=== PATIENT | female | born 1995 | race Caucasian/White ===

== ENCOUNTER → 2016-12-22 00:34 | Emergency (ER) | payer OTHER ==
[~2016-12-22 00:34] MED LIST: Amoxicillin CAP* 500 MG PO ONE; predniSONE TAB* 20 MG PO ONE
[2016-12-22 01:47] VITALS: BP 116/67
--- NOTE | 2016-12-22 02:44 | ED ---
Martinez Krause Rebecca, scribed for Ramon Mccurdy on 12/22/16 at 0140 . Throat Pain/Nasal Congestion - HPI Summary HPI Summary: Pt is a 21 y/o F who presents to ED c/o throat pain. Pain began gradually on Saturday (6 days ago) and has been constant and worsening since onset. Pain is currently severe, ranked 8/10. Sx aggravated by swallowing and alleviated by nothing. Denies ear pain. Pt evaluated by Daren 2 times in the past week, but will not have any test results until this afternoon. - History of Current Complaint Chief Complaint: EDThroatPain Time Seen by Provider: 12/22/16 01:37 Hx Obtained From: Patient Onset/Duration: Gradual Onset, Still Present Severity: Severe - 8/10 Associated Signs And Symptoms: Positive: Negative - Allergies/Home Medications Allergies/Adverse Reactions: Allergies Allergy/AdvReac Type Severity Reaction Status Date / Time No Known Allergies Allergy Verified 12/22/16 01:43 PMH/Surg Hx/FS Hx/Imm Hx Previously Healthy: Yes Endocrine/Hematology History: Denies: Hx Diabetes Cardiovascular History: Denies: Hx Hypertension Infectious Disease History: Denies: Traveled Outside the [place] in Last 30 Days - Family History Known Family History: Negative: Hypertension, Diabetes - Social History Occupation: Student Substance Use Type: Reports: None Smoking Status (MU): Never Smoked Tobacco Review of Systems Constitutional: Negative Eyes: Negative Positive: Sore Throat. Negative: Ear Ache Cardiovascular: Negative Respiratory: Negative Gastrointestinal: Negative Genitourinary: Negative Musculoskeletal: Negative Skin: Negative Neurological: Negative Psychological: Normal All Other Systems Reviewed And Are Negative: Yes Physical Exam Triage Information Reviewed: Yes Vital Signs On Initial Exam: Initial Vitals Temp Pulse Resp BP Pulse Ox 98.2 F 80 16 119/90 99 12/22/16 00:45 12/22/16 00:45 12/22/16 00:45 12/22/16 00:45 12/22/16 00:45 Vital Signs Reviewed: Yes Appearance: Positive: Well-Appearing, No Pain Distress Skin: Positive: Warm, Skin Color Reflects Adequate Perfusion, Dry Eyes: Positive: EOMI, SILVERIO ENT: Positive: Pharyngeal erythema, Tonsillar swelling, Other - pharyngeal congestion Respiratory/Lung Sounds: Positive: Clear to Auscultation, Breath Sounds Present Cardiovascular: Positive: RRR, Pulses are Symmetrical in both Upper and Lower Extremities Abdomen Description: Positive: Nontender, Soft Bowel Sounds: Positive: Present Musculoskeletal: Positive: Normal, Strength/ROM Intact Neurological: Positive: Normal, Sensory/Motor Intact, Alert, Oriented to Person Place, Time Diagnostics - Vital Signs Vital Signs Temp Pulse Resp BP Pulse Ox 12/22/16 00:45 98.2 F 80 16 119/90 99 - Laboratory Lab Statement: Any lab studies that have been ordered have been reviewed, and results considered in the medical decision making process. EENT Course/Dx - Course Assessment/Plan: Pt came to the ED with a sore throat. Exam revealed erythematous and congested pharynx and swollen tonsils. Pt will be D/C to home with a Dx of pharyngitis, prescriptions for Amoxicillin and Medrol and a followup with PCP in 3 days. - Diagnoses Provider Diagnoses: Pharyngitis Discharge - Discharge Plan Condition: Stable Disposition: HOME Prescriptions: Amoxicillin (*) [Amoxicillin 875 MG (*)] 875 mg PO BID #20 tab Methylprednisolone [Medrol Dosepak 4 MG*] 0 mg PO .SEE WENDY INSTRUCTION #1 tab Patient Education Materials: Pharyngitis (ED) Referrals: [facility] [Primary Care Provider] - 3 Days The documentation as recorded by the Martinez gentile Rebecca accurately reflects the service I personally performed and the decisions made by Kaz green Emmanuel.
== END | disposition home or self-care (01) ==
LOC: ED 00:34
DX: J02.9 Acute pharyngitis, unspecified (principal)
CPT/HCPCS: 87651; 99282; A9270-GY; J7512